=== PATIENT | male | born 1940 | race Caucasian/White ===

== ENCOUNTER 2017-03-25 11:37 | Day surgery (SDC) | payer OTHER ==
[2017-03-25] MEDS ORDERED: TEMAZEPAM 15 MG CAP PO PRN (11:41)
[2017-03-25] MEDS ORDERED: DIAZEPAM 5 MG TAB PO ONE (11:41)
[2017-03-25] MEDS ORDERED: FAMOTIDINE 20 MG TAB PO ONE (11:41)
[2017-03-25] MEDS ORDERED: ASPIRIN EC 325 MG TAB PO ONE ×2 (11:41→12:09)
[2017-03-25] MEDS ORDERED: NS 1,000 ML IV SCH (11:41)
[2017-03-25] MEDS ORDERED: ACETAMINOPHEN 325 MG TAB PO PRN (11:41)
[2017-03-25] MEDS ORDERED: diphenhydrAMINE 25 MG CAP PO ONE ×2 (11:41→12:08)
[2017-03-25] MEDS ORDERED: NITROGLYCERIN 0.4 MG BTL SL PRN (11:41)
--- NOTE | 2017-03-25 12:01 | CPEKG ---
Heart Rate: 69 RR Interval: 870 P-R Interval: 168 QRSD Interval: 96 QT Interval: 452 QTC Interval: 485 P [place]: 63 QRS [place]: 29 T Wave [place]: 3 EKG Severity - BORDERLINE ECG - EKG Impression: SINUS RHYTHM EKG Impression: BORDERLINE PROLONGED QT INTERVAL Electronically Signed By: Bo Alvarado 25-Mar-2017 13:12:25
[2017-03-25] MEDS ORDERED: FAMOTIDINE 20 MG TAB ONE (12:09)
[2017-03-25] MEDS ORDERED: DIAZEPAM 5 MG TAB ONE (12:09)
[2017-03-25 12:20] LABS: % IMMATURE GRANULYOCYTES 0.4 % (0.0-1.1); ABSOLUTE IMMATURE GRANULOCYTES 0.03 10^3/uL (0.00-0.10); ADD DIFF? NO; ADD MORPH? NO; ADD SCAN? NO; ATYPICAL LYMPHOCYTE FLAG 10 (0-99); FRAGMENT RBC FLAG 0 (0-99); HEMATOCRIT 47.6 % (40.0-51.0); HEMOGLOBIN 15.9 g/dL (13.7-17.5); LEFT SHIFT FLG 0 (0-99); LIPEMIA HEMOLYSIS FLAG 80 (0-99); MEAN CELL HEMOGLOBIN 30.1 pg (27.9-34.1); MEAN CELL HEMOGLOBIN CONCENTR. 33.4 g/dL (32.4-36.7); MEAN PLATELET VOLUME 10.8 fL (8.7-11.7); PLATELET CLUMPS FLAG 0 (0-99); PLATELET COUNT 170 10^3/uL (150-400); RED BLOOD CELL COUNT 5.29 10^6/uL (4.40-6.38); RED CELL DISTRIBUTION WIDTH 13.3 % (11.5-15.2)
[2017-03-25] MEDS ORDERED: LIDOCAINE 1% 300 MG/30 ML SDV ONE (12:21)
[2017-03-25] MEDS ORDERED: MIDAZOLAM 2 MG/2 ML VIAL ONE (12:21)
[2017-03-25] MEDS ORDERED: IOPAMIDOL (ISOVUE-370) 150 ML BTL IV ONE (12:21)
[2017-03-25] MEDS ORDERED: fentaNYL 100 MCG/2 ML INJ ONE (12:21)
[2017-03-25 12:31] LABS: INR 1.08 (0.83-1.16); PROTIME(PATIENT) 13.9 SEC (12.0-15.0)
[2017-03-25 12:32] LABS: APTT 32.5 SEC (23.0-38.0)
[2017-03-25 12:35] LABS: ALANINE AMINOTRANSFERASE 25 IU/L (21-72); ALBUMIN 4.4 g/dL (3.5-5.0); ALKALINE PHOSPHATASE 86 IU/L (38-126); ANION GAP 13 mEq/L (8-16); ASPARTATE AMINOTRANSFERASE 18 IU/L (17-59); BILIRUBIN,TOTAL 1.1 mg/dL (0.1-1.4); CALCIUM 9.9 mg/dL (8.5-10.4); CARBON DIOXIDE 26 mEq/l (22-31); CHLORIDE 103 mEq/L (97-110); CHOLESTEROL 259 mg/dL (140-220); CHOLESTEROL/HDL RATIO 6.48 RATIO (1.00-4.97); GLOMERULAR FILTRATION RATE > 60; GLUCOSE 103 mg/dL (70-100); HIGH DENSITY LIPOPROTEIN 40 mg/dL (40-65); LDL/HDL RATIO 4.75 RATIO (1.00-3.64); LOW DENSITY LIPOPROTEIN 190 mg/dL (80-100); MAGNESIUM 1.8 mg/dL (1.6-2.3); NON-HIGH DENSITY LIPOPROTEIN 219 mg/dL (90-129); SODIUM 142 mEq/L (134-144); TOTAL PROTEIN 7.8 g/dL (6.3-8.2); TRIGLYCERIDE 149 mg/dL (40-150); VERY LOW DENSITY LIPOPROTEINS 29 mg/dL (8-25)
--- NOTE | 2017-03-25 13:08 | PDPROPOC ---
Sedation Plan of Care Sedation Plan of Care: vital signs stable ASA Classification: ASA 1 Planned drugs: fentanyl, midazolam Mallampati Score: Class 1 Mallampati Reference Image: Patient passed 3-3-2 rule?: Yes
--- NOTE | 2017-03-25 13:08 | PDHPUP ---
History & Physical Update H&P update statement: This history and physical update is based on an assessment of the patient which was completed after admission or registration (within 24 hours), but prior to the surgery/procedure. H&P update: H&P reviewed & patient examined, no change in patient's condition since H&P completed
[2017-03-25] MEDS ORDERED: HEPARIN 10,000 UNIT/10 ML MDV ONE (13:34)
[2017-03-25] MEDS ORDERED: VERAPAMIL 5 MG/2 ML VIAL ONE (13:34)
[2017-03-25] MEDS ORDERED: ATROPINE SULFATE 1 MG/10 ML SYR IVP PRN (14:15)
--- NOTE | 2017-03-25 14:23 | PDDXCAT ---
Diagnostic Cath Note - . Date: 03/25/17 Sales Agent: Verónica Indication: other (Post stress LV dilation.) - Procedure Access: right wrist Procedure: left heart catheterization, coronary angiography, left ventriculogram - Materials Left Heart Cath size: 5F Left Heart Cath materials: JR4.0, other ( AR1) - Findings-Left Heart Catheterization LM: Long, large caliber vessel bifurcates into the LAD and circumflex. No obstructive disease. LAD: Large caliber vessel that traverses the left ventricular apex. 2 diagonal branches noted in the very proximal segment. There are luminal irregularities in the LAD up to 20%. LCX: Small caliber vessel with a single very small 1st obtuse marginal branch. High-grade (80% ) lesion in the mid circumflex. RCA: Very large caliber vessel with a dual PDA system. Large posterolateral branch. Luminal irregularities up to 20% with no obstructive lesions. EDP: 20 mm Hg. LVEF: 55-60%. Wall motion: Normal. Complications: None. Estimated blood loss: <50ml Closure method: TR Band Assessment: Single-vessel coronary artery disease with evidence of a high-grade lesion in the mid portion of a very small nondominant circumflex. Normal left ventricular systolic function with normal left ventricular contractility. Evidence of diastolic dysfunction. No significant valvular heart disease. Plan: Medical therapy for secondary prevention. Intervention: None.
== END 2017-03-25 17:00 | disposition home or self-care (01) ==
LOC: FCATH 11:37
PROVIDERS: ATTEND Internal Medicine Cardiovascular Disease
PROC: 4A023N7 Measurement of Cardiac Sampling and Pressure, Left Heart, Percutaneous Approach (ICD-10-PCS; principal; 2017-03-25)
PROC: B2151ZZ Fluoroscopy of Left Heart using Low Osmolar Contrast (ICD-10-PCS; principal; 2017-03-25)
PROC: B2111ZZ Fluoroscopy of Multiple Coronary Arteries using Low Osmolar Contrast (ICD-10-PCS; principal; 2017-03-25)
DX: I25.10 Atherosclerotic heart disease of native coronary artery without angina pectoris (principal); R94.39 Abnormal result of other cardiovascular function study; I48.0 Paroxysmal atrial fibrillation; I71.2 Thoracic aortic aneurysm, without rupture; E11.9 Type 2 diabetes mellitus without complications; I10 Essential (primary) hypertension; E03.9 Hypothyroidism, unspecified; N40.0 Benign prostatic hyperplasia without lower urinary tract symptoms; E78.5 Hyperlipidemia, unspecified; Z79.01 Long term (current) use of anticoagulants; Z86.73 Personal history of transient ischemic attack (TIA), and cerebral infarction without residual deficits
CPT/HCPCS: 93005; 93458; C1769; J1644; J2250; J3010; Q9967

== ENCOUNTER → 2018-04-08 | Outpatient (CLI) | payer OTHER | LOC: FIMAGING 13:36 | PROVIDERS: ATTEND Orthopaedic Surgery Orthopaedic Surgery of the Spine | DX: M48.07 Spinal stenosis, lumbosacral region (principal) ==

== ENCOUNTER 2018-05-10 08:45 | Day surgery (SDC) | payer OTHER ==
[2018-05-10] MEDS ORDERED: NS 500 ML IV ONE (08:50)
[2018-05-10] MEDS ORDERED: ATROPINE SULFATE 1 MG/10 ML SYR IVP ONE (08:50)
[2018-05-10] MEDS ORDERED: MIDAZOLAM 2 MG/2 ML VIAL IVP ONE (08:50)
[2018-05-10] MEDS ORDERED: fentaNYL 100 MCG/2 ML INJ IVP ONE (08:50)
--- NOTE | 2018-05-10 19:30 | CPEKG ---
Test Reason : OPEN Blood Pressure : / mmHG Vent. Rate : 082 BPM Atrial Rate : 082 BPM P-R Int : 176 ms QRS Dur : 092 ms QT Int : 417 ms P-R-T Axes : 058 023 006 degrees QTc Int : 487 ms Sinus rhythm Borderline prolonged QT interval Confirmed by Suellen Fields ([id number]) on 05/10/2018 7:29:37 PM Referred By: Confirmed By:Suellen Fields
== END 2018-05-10 09:30 | disposition home or self-care (01) ==
LOC: FCATH 08:45
PROVIDERS: ATTEND Internal Medicine Cardiovascular Disease
DX: I48.91 Unspecified atrial fibrillation (principal); I45.81 Long QT syndrome; Z53.8 Procedure and treatment not carried out for other reasons

== ENCOUNTER → 2018-06-08 | Day surgery (SDC) | payer OTHER ==
[~2018-06-08] MED LIST: ATROPINE SULFATE 1 MG/10 ML SYR IVP ONE; LIDOCAINE 2% 2 ML INJ ONE; NS 500 ML IV ONE; PROPOFOL 200 MG/20 ML VIAL ONE; fentaNYL 100 MCG/2 ML INJ IVP ONE
--- NOTE | 2018-06-08 13:13 | PDANEPAE ---
ANE Past Medical History - Cardiovascular History Hx Hypertension: Yes Hx Arrhythmias: Yes - Pulmonary History Hx Sleep Apnea: No - Neurologic History Hx Cerebrovascular Accident: Yes - Renal History Hx Renal Disorders: No - Liver History Hx Hepatic Disorders: No - Neurological & Psychiatric Hx Hx Neurological and Psychiatric Disorders: No ANE Review of Systems Review of Systems: ANE Patient History - Allergies Allergies/Adverse Reactions: atorvastatin Allergy (Verified 03/21/17 09:27) azithromycin Allergy (Verified 03/21/17 09:27) Hives erythromycin base Allergy (Verified 03/21/17 09:27) gemfibrozil [From Lopid] Allergy (Verified 03/21/17 09:27) leg swelling glipizide Allergy (Verified 03/21/17 09:27) Macrolide Antibiotics Allergy (Verified 03/21/17 09:27) - Home Medications Home Medications: Acetaminophen [Tylenol 325mg (*)] 325 mg PO DAILY PRN 03/24/17 [Last Taken Unknown] C/E/Zn/Cu/OM3/DHA/EPA/LUT/ZEAX [Preservision Areds 2 Softgel] 1 each PO DAILY [Last Taken Unknown] Dutasteride [Avodart 0.5 MG (*)] 0.5 mg PO DAILY 03/24/17 [Last Taken Unknown] Levothyroxine [Synthroid 88 mcg (*)] 88 mcg PO DAILY06 03/24/17 [Last Taken Unknown] [place]-3 Fatty Acids [Fish Oil 1000 mg (*)] 1,000 mg PO DAILY 03/24/17 [Last Taken Unknown] Probenecid [Probenecid 500mg (*)] 500 mg PO DAILY 03/24/17 [Last Taken Unknown] Rivaroxaban [Xarelto 10mg (*)] 20 mg PO DAILY 03/24/17 [Last Taken Unknown] Cardizem Cd 120 mg PO DAILY 05/10/18 [Last Taken Unknown] Propafenone HCl 150 mg PO TID 05/10/18 [Last Taken Unknown] - Smoking Hx Smoking Status: Never smoked ANE Labs/Vital Signs - Labs Result Diagrams: 06/08/18 13:15 ANE Physical Exam - Airway Neck exam: FROM Mallampati Score: Class 2 Mouth exam: normal dental/mouth exam - Pulmonary Pulmonary: no respiratory distress, no rales or rhonchi, clear to auscultation - Cardiovascular Cardiovascular: irregularly irregular - ASA Status ASA Status: III ANE Anesthesia Plan Anesthesia Plan: GA with mask Total IV Anesthesia: Yes
[2018-06-08 13:59] LABS: INR 1.77 (0.83-1.16); PROTIME(PATIENT) 20.7 SEC (12.0-15.0)
--- NOTE | 2018-06-08 14:05 | PDCARD ---
Cardioversion Procedure Procedure: electrical cardioversion Indications: atrial fibrillation Consent: signed and in chart Anticoagulation: xarelto Procedural Details: Pads were placed in anterior-posterior position. Synchronized cardioversion attempt #1: [id number] Results: normal sinus rhythm Conclusions: successful cardioversion
--- NOTE | 2018-06-08 14:24 | POSTANESTH ---
Post Anesthetic Evaluation Cardiovascular Status: Normal, Stable Respiratory Status: Normal, Stable Level of Consciousness/Mental Status: Can Participate in Eval Pain Control: Adequate, Prn Tx Ordered Nausea/Vomiting Control: Adequate, Prn Tx Ordered Complications Possibly Related to Anesthesia: None Noted
--- NOTE | 2018-06-09 17:39 | CPEKG ---
Test Reason : OPEN Blood Pressure : / mmHG Vent. Rate : 121 BPM Atrial Rate : 178 BPM P-R Int : 172 ms QRS Dur : 096 ms QT Int : 362 ms P-R-T Axes : 000 021 -01 degrees QTc Int : 514 ms Atrial fibrillation Prolonged QT interval Confirmed by Jerardo Bryan ([id number]) on 06/09/2018 5:39:00 PM Referred By: Confirmed By:Jerardo Bryan
--- NOTE | 2018-06-09 17:39 | CPEKG ---
Test Reason : OPEN Blood Pressure : / mmHG Vent. Rate : 083 BPM Atrial Rate : 083 BPM P-R Int : 184 ms QRS Dur : 091 ms QT Int : 395 ms P-R-T Axes : 045 027 005 degrees QTc Int : 465 ms Sinus rhythm Multiple ventricular premature complexes Confirmed by Jerardo Bryan ([id number]) on 06/09/2018 5:39:25 PM Referred By: Confirmed By:Jerardo Bryan
== END | disposition home or self-care (01) ==
LOC: FCATH 12:45
PROVIDERS: ATTEND Internal Medicine Cardiovascular Disease
PROC: 5A2204Z Restoration of Cardiac Rhythm, Single (ICD-10-PCS; principal; 2018-06-08)
DX: I48.91 Unspecified atrial fibrillation (principal); I10 Essential (primary) hypertension; E78.5 Hyperlipidemia, unspecified; J45.909 Unspecified asthma, uncomplicated
CPT/HCPCS: J0461; J2704